=== PATIENT | female | born 1960 | race Caucasian/White ===

== ENCOUNTER 2021-02-23 11:20 | Emergency (ER) | payer MEDICARE ==
[~2021-02-23] VITALS: Ht 160 cm; Wt 72.6 kg
[~2021-02-23 11:20] MED LIST: DOXYCYCLINE HY100 M2 PO; Voltaren Gel 1% TOP
[2021-02-23 12:27] LABS: HEMOGLOBIN 13.2 gm/dl (12.3-15.3); RED BLOOD COUNT 4.19 M/UL (4.00-5.10)
[2021-02-23 12:50] LABS: BUN/CREATININE RATIO 12 (0-10)
== END 2021-02-23 18:37 | disposition short-term general hospital (02) ==
LOC: ER1 11:20
PROVIDERS: Nurse Practitioner
DX: R55 Syncope and collapse (principal); S93.401A Sprain of unspecified ligament of right ankle, initial encounter; I10 Essential (primary) hypertension; E03.9 Hypothyroidism, unspecified; Z20.822 Contact with and (suspected) exposure to COVID-19; W01.0XXA Fall on same level from slipping, tripping and stumbling without subsequent striking against object, initial encounter
CPT/HCPCS: 70450; 71045; 73600; 73620; 80048; 80307; 81001; 82550; 82553; 83874; 84484; 85025; 85610; 85730; 93005; 96374; 99285; J1953; J7030; U0002